=== PATIENT | male | born 1955 | race Caucasian/White ===

== ENCOUNTER 2021-01-01 08:26 | Inpatient (IN) | payer OTHER ==
[~2021-01-01] VITALS: Ht 167.6 cm; Wt 103.4 kg
--- NOTE | 2021-01-01 08:51 | NUR ---
PT TO ROOM FROM TRIAGE, CHANGED INTO GOWN, MONITORS IN PLACE. PT C/O RUQ PAIN THAT RADIATES TO BACK. PT STATES HE WAS AT [facility] ALL NIGHT AND STATES HE HAS INFLAMMED GALLBLADDER AND THEY DO NOT DO SURGERY IN [place] SO WAS SENT HERE. CALL LIGHT WITHIN REACH, FAMILY AT BS. PT STATES NO NEEDS AT THIS TIME
--- NOTE | 2021-01-01 09:00 | NUR ---
ERP AT BS FOR EVAL
[2021-01-01] MEDS ORDERED: AMPICILLIN/SULBACTAM 3 GM in SODIUM CHLORIDE 0.9% 100 ML IV ONE (10:30)
[2021-01-01] MEDS ORDERED: SODIUM CHLORIDE 0.9% 1,000 ML IV ONE (10:30)
[2021-01-01] MEDS ORDERED: SODIUM CHLORIDE FLUSH 10ML SYR IVF ONE (10:30)
[2021-01-01] MEDS ORDERED: MORPHINE SULFATE 4 MG/ML, 1ML IVPush PRN (10:30)
--- NOTE | 2021-01-01 10:30 | NUR ---
PIV PLACED, LABS DRAWN.
--- NOTE | 2021-01-01 10:35 | NUR ---
XRAY AT BS
[2021-01-01 10:44] LABS: BASOPHILS % (AUTO) 0 % (0-1); EOSINOPHILS % (AUTO) 0 % (1-7); LYMPHOCYTES % (AUTO) 13 % (22-44); MEAN CORPUSCULAR HEMOGLOBIN 30.2 pg (27.5-34.5); MEAN CORPUSCULAR HGB CONC 34.1 g/dL (33.2-36.2); MEAN PLATELET VOLUME 7.1 fL (7.4-10.4); MONOCYTES % (AUTO) 8 % (2-9); NEUTROPHILS % (AUTO) 79 % (42-75); PLATELET COUNT 241 x10^3/uL (130-400); RED BLOOD COUNT 5.05 x10^6/uL (4.38-5.82); RED CELL DISTRIBUTION WIDTH 13.1 % (9.4-14.8)
[2021-01-01 10:57] LABS: ALANINE AMINOTRANSFERASE 30 U/L (12-78); ALKALINE PHOSPHATASE 38 U/L (45-117); ANION GAP 8 mmol/L (5-15); BILIRUBIN,TOTAL 0.5 mg/dL (0.2-1.0); CALCIUM 9.1 mg/dL (8.5-10.1); CHLORIDE 100 mmol/L (98-107); CREATININE 1.18 mg/dL (0.7-1.3)
[2021-01-01 10:58] LABS: ALBUMIN 3.7 g/dL (3.4-5.0); TOTAL PROTEIN 7.9 g/dL (6.4-8.2)
--- NOTE | 2021-01-01 11:13 | NUR ---
PT MEDICATED PER EMAR. RESTING ON GURNEY, AT BS. CALL LIGHT WITHIN REACH, BED IN LOWEST POSITION, BED RAILS UP X2
--- NOTE | 2021-01-01 11:20 | NUR ---
Pt to be admitted to SURGICAL, room 469. Report called to SHANKAR.
[2021-01-01] MEDS ORDERED: METO25TA35 PO (11:23)
[2021-01-01] MEDS ORDERED: LISI-170 PO (11:23)
[2021-01-01] MEDS ORDERED: EPINEPHRINE 1 MG/ML, 1ML ONE (11:27)
[2021-01-01] MEDS ORDERED: BUPIVACAINE/PF 0.25% ONE (11:27)
[2021-01-01] MEDS ORDERED: CHLORHEXIDINE 15 ML UDC PO ONE (12:00)
[2021-01-01] MEDS: LACTATED RINGERS 1,000 ML IV SCH ×2 (12:00→15:15)
[2021-01-01] MEDS ORDERED: POLYETHYLENE GLYCOL 17 GM PACKET PO PRN (12:00)
[2021-01-01] MEDS ORDERED: LACTATED RINGERS 1,000 ML IV SCH (12:00)
[2021-01-01] MEDS ORDERED: ONDANSETRON ODT 4 MG PO PRN (12:00)
[2021-01-01] MEDS ORDERED: morphine SULFATE 10 MG/ML, 1ML IVPush PRN ×2 (12:00→13:30)
[2021-01-01] MEDS ORDERED: ACETAMINOPHEN 325 MG TABLET PO PRN ×2 (12:00→12:30)
[2021-01-01] MEDS ORDERED: ONDANSETRON 2MG/ML, 2ML IVPush PRN (12:27)
[2021-01-01] MEDS ORDERED: PROMETHAZINE 25 MG/ML, 1ML IV PRN (12:30)
[2021-01-01] MEDS ORDERED: FENTANYL PF 100 MCG/2ML IV PRN ×2 (12:30→13:30)
[2021-01-01] MEDS ORDERED: HYDROmorphone 2 MG/ML, 1ML IVPush PRN (12:30)
[2021-01-01] MEDS ORDERED: KETOROLAC 30 MG/1 ML IV PRN (12:30)
[2021-01-01] MEDS ORDERED: DIAZEPAM 5 MG/ML, 2ML IVPush PRN (12:30)
[2021-01-01] MEDS ORDERED: LABETALOL 5MG/ML, 20ML IV PRN (12:30)
[2021-01-01] MEDS ORDERED: MEPERIDINE/PF 25MG/0.5ML IVPush PRN (12:30)
[2021-01-01] MEDS ORDERED: ALBUTEROL SULFATE 2.5 MG/3 ML NPPB PRN (12:30)
[2021-01-01] MEDS ORDERED: hydrALAzine 20 MG/ML, 1ML IV PRN (12:30)
[2021-01-01] MEDS ORDERED: OXYcodone 5 MG/5 ML ORAL.SOL UDC PO PRN (12:30)
[2021-01-01] MEDS ORDERED: BUPIVACAINE/PF-EPI 0.5% 1:200K INFIL ONE (12:50)
[2021-01-01] MEDS ORDERED: SUCCINYLCHOLINE 20 MG/ML, 10ML ONE (13:12)
[2021-01-01] MEDS ORDERED: ROCURONIUM 10MG/ML,5ML ONE (13:12)
[2021-01-01] MEDS ORDERED: PROPOFOL 10 MG/ML, 20ML ONE (13:12)
[2021-01-01] MEDS ORDERED: ONDANSETRON 2MG/ML, 2ML ONE (13:15)
[2021-01-01] MEDS ORDERED: HYDROcodone/APAP 7.5-325MG/15ML UDC PO PRN (13:30)
[2021-01-01] MEDS ORDERED: SUGAMMADEX 200 MG/2 ML IVPush ONE (13:35)
[2021-01-01] MEDS ORDERED: FENTANYL PF 100 MCG/2ML ONE ×2 (13:43→14:28)
[2021-01-01] MEDS ORDERED: HYDROcodone/APAP 7.5-325MG/15ML UDC ONE (14:21)
[2021-01-01] MEDS ORDERED: KETOROLAC 30 MG/1 ML ONE (14:36)
[2021-01-01] MEDS: METOPROLOL TARTRATE 25 MG TAB PO SCH (17:38)
[2021-01-01] MEDS ORDERED: ENOXAPARIN 40 MG/0.4 ML SQ SCH (18:00)
[2021-01-01 18:42] VITALS: BP 127/79
[2021-01-01 19:50] VITALS: BP 105/64
[2021-01-01] MEDS: HYDROcodone/APAP 5/325 TABLET PO PRN (21:22)
[2021-01-01 23:30] VITALS: BP 99/58
[2021-01-02 03:26] VITALS: BP 120/70
[2021-01-02] MEDS: HYDROcodone/APAP 5/325 TABLET PO PRN ×2 (04:51→10:49)
[2021-01-02] MEDS: METOPROLOL TARTRATE 25 MG TAB PO SCH (04:54)
[2021-01-02] MEDS ORDERED: ASPIRIN 81 MG TABLET EC PO SCH (06:00)
[2021-01-02 06:02] LABS: BASOPHILS % (AUTO) 0 % (0-1); EOSINOPHILS % (AUTO) 1 % (1-7); LYMPHOCYTES % (AUTO) 23 % (22-44); MEAN CORPUSCULAR HEMOGLOBIN 30.3 pg (27.5-34.5); MEAN CORPUSCULAR HGB CONC 33.8 g/dL (33.2-36.2); MEAN PLATELET VOLUME 7.3 fL (7.4-10.4); MONOCYTES % (AUTO) 12 % (2-9); NEUTROPHILS % (AUTO) 65 % (42-75); PLATELET COUNT 220 x10^3/uL (130-400); RED BLOOD COUNT 4.56 x10^6/uL (4.38-5.82); RED CELL DISTRIBUTION WIDTH 13.4 % (9.4-14.8)
[2021-01-02 06:12] LABS: ALANINE AMINOTRANSFERASE 119 U/L (12-78); ALBUMIN 2.8 g/dL (3.4-5.0); ANION GAP 6 mmol/L (5-15); CALCIUM 8.4 mg/dL (8.5-10.1); CHLORIDE 103 mmol/L (98-107)
[2021-01-02 06:15] LABS: ALKALINE PHOSPHATASE 36 U/L (45-117); BILIRUBIN,TOTAL 1.1 mg/dL (0.2-1.0); CREATININE 0.92 mg/dL (0.7-1.3); TOTAL PROTEIN 6.8 g/dL (6.4-8.2)
[2021-01-02 07:45] VITALS: BP 102/61
[2021-01-02] MEDS ORDERED: SENNA/DOCUSATE TABLET PO SCH (09:00)
[2021-01-02] MEDS ORDERED: LISINOPRIL 20 MG TABLET PO SCH (09:00)
[2021-01-02] MEDS ORDERED: HYDR-2214 PO (10:51)
[2021-01-02] MEDS ORDERED: ASPI81TA45 PO (10:51)
[2021-01-02] MEDS ORDERED: SENN-211 PO (10:51)
[2021-01-02 12:55] VITALS: BP 106/70
== END 2021-01-02 13:05 | disposition home or self-care (01) | DRG 419 ==
LOC: ED 09:13 → 4NE 14:50 → SUATTDRO 16:36 → ED 22:10 → 4NE 22:11
PROVIDERS: ADMIT Family Medicine; ATTEND Family Medicine
PROC: 0FT44ZZ Resection of Gallbladder, Percutaneous Endoscopic Approach (ICD-10-PCS; principal; 2021-01-01 12:30)
DX: K80.00 Calculus of gallbladder with acute cholecystitis without obstruction (principal); Z20.822 Contact with and (suspected) exposure to COVID-19; L40.9 Psoriasis, unspecified; I25.10 Atherosclerotic heart disease of native coronary artery without angina pectoris; E66.9 Obesity, unspecified; Z87.442 Personal history of urinary calculi; Z95.1 Presence of aortocoronary bypass graft; Z68.34 Body mass index [BMI] 34.0-34.9, adult; Z79.899 Other long term (current) drug therapy
CPT/HCPCS: 36415; 71045; 76700; 80053; 85025; 87635; 88304; 93005; 96374; 96375; G0378; J0171; J0295; J1650; J1885; J2405; J2704; J3010; J0330; J2270; J7030; J7120